=== PATIENT | female | born 1945 | race Caucasian/White ===

== ENCOUNTER 2020-12-29 09:16 | Inpatient (IN) | payer MEDICARE ==
[2020-12-29] MEDS ORDERED: Ondansetron PF 4 MG/2 ML Vial ONE (09:38)
[2020-12-29] MEDS ORDERED: Dexamethasone 10 MG/ML VIAL ONE (10:51)
[2020-12-29] MEDS ORDERED: Acetaminophen 500 MG TAB ONE (10:51)
[2020-12-29 11:04] LABS: Hemoglobin 16.4 g/dL (12.0-16.0); Mean Corpuscular HGB CONC 32.7 g/dL (32.0-36.0); Mean Corpuscular Hemoglobin 30.2 pg (27.0-31.0); Mean Corpuscular Volume 92.3 fL (78.0-98.0); Mean Platelet Volume 9.6 fL (7.4-10.4); Platelet Count 80 thou/uL (130-400); Red Blood Cell (RBC) Count 5.43 mill/uL (4.20-5.40); White Blood Cell (WBC) Count 3.6 thou/uL (4.8-10.8)
[2020-12-29 12:00] LABS: Bilirubin Moderate (Negative); Blood, Urine Negative (Negative); Clarity Clear (Clear); Glucose, Urine (Dipstick) Negative (Negative); Ketone, Urine 80 mg/dL (Negative); Leukocyte Large (Negative); Nitrite Negative (Negative); Protein, Urine (Dipstick) Trace mg/dL (Neg-Trace); Specific Gravity, Urine 1.015 (1.005-1.030); pH, Urine 6.5 (5.0-9.0)
[2020-12-29 12:02] LABS: ALT (SGPT) 137 U/L (8-55); AST (SGOT) 168 U/L (5-34); Albumin 3.5 g/dL (3.4-4.8); Alkaline Phosphatase 135 U/L (40-110); Anion Gap 23 mmol/L (10-20); BUN (Urea Nitrogen) 10 mg/dL (9.8-20.1); Bilirubin, Total 0.8 mg/dL (0.2-1.2); Calc. Creatinine Clearance 0 mL/min (70-130); Calcium 7.6 mg/dL (7.8-10.44); Carbon Dioxide 17 mmol/L (23-31); Chloride 100 mmol/L (98-107); Globulin 2.8 g/dL (2.4-3.5); Glucose 112 mg/dL (83-110); Potassium 3.4 mmol/L (3.5-5.1); Protein, Total 6.3 g/dL (5.8-8.1); Sodium 137 mmol/L (136-145)
[2020-12-29 12:39] LABS: RBC/HPF 0-3 HPF (0-3)
[2020-12-29 12:40] LABS: Bacteria/HPF 1+ HPF (None Seen); Transitional Epithelial 0-3 HPF (None Seen); WBC/HPF 21-50 HPF (0-3)
[2020-12-29 12:48] LABS: #Lymphocytes 0.5 thou/uL (1.20-3.40); #Monocytes 0.4 thou/uL (0.11-0.59); #Neutrophils 2.7 thou/uL (1.40-6.50); %Basophils 0.4 % (0.0-1.0); %Eosinophils 0.1 % (0.0-10.0); %Lymphocytes 13.7 % (21.0-51.0); %Monocytes 9.8 % (0.0-10.0); Platelet Morphology Comment Appears Decreased
[2020-12-29 15:09] LABS: SARS-CoV-2 NAA Rapid Test DETECTED (NotDetected)
[2020-12-29] MEDS: Dextrose 5 %-0.45 % NaCl 1,000 ML IV SCH (15:30)
[2020-12-29 16:14] VITALS: BMI 33.2
[2020-12-29] MEDS ORDERED: Senokot S 8.6-50 MG TAB PO PRN (20:29)
[2020-12-29] MEDS ORDERED: Loperamide HCl 2 MG CAP PO PRN ×2 (20:29)
[2020-12-29] MEDS: Ondansetron ODT 4 MG TAB PO PRN (22:05)
[2020-12-30] MEDS: Dextrose 5 %-0.45 % NaCl 1,000 ML IV SCH ×2 (01:11→01:19)
[2020-12-30 04:40] LABS: #Monocytes 0.5 thou/uL (0.11-0.59); #Neutrophils 3.3 thou/uL (1.40-6.50); %Basophils 0.5 % (0.0-1.0); %Eosinophils 0.1 % (0.0-10.0); %Lymphocytes 20.7 % (21.0-51.0); %Monocytes 10.5 % (0.0-10.0); %Neutrophils 68.2 % (42.0-75.0); Mean Corpuscular HGB CONC 33.4 g/dL (32.0-36.0); Mean Corpuscular Hemoglobin 30.1 pg (27.0-31.0); Mean Corpuscular Volume 90.1 fL (78.0-98.0); Mean Platelet Volume 10.3 fL (7.4-10.4); Platelet Count 130 thou/uL (130-400); RBC Distribution Width 11.6 % (11.5-14.5); Red Blood Cell (RBC) Count 4.96 mill/uL (4.20-5.40); White Blood Cell (WBC) Count 4.8 thou/uL (4.8-10.8)
[2020-12-30 05:17] LABS: ALT (SGPT) 168 U/L (8-55); AST (SGOT) 214 U/L (5-34); Albumin 3.4 g/dL (3.4-4.8); Alkaline Phosphatase 151 U/L (40-110); Anion Gap 15 mmol/L (10-20); BUN (Urea Nitrogen) 6 mg/dL (9.8-20.1); Bilirubin, Total 0.6 mg/dL (0.2-1.2); Calc. Creatinine Clearance 82 mL/min (70-130); Calcium 8.3 mg/dL (7.8-10.44); Carbon Dioxide 26 mmol/L (23-31); Chloride 104 mmol/L (98-107); Globulin 2.8 g/dL (2.4-3.5); Glucose 135 mg/dL (83-110); Potassium 3.1 mmol/L (3.5-5.1); Protein, Total 6.2 g/dL (5.8-8.1); Sodium 142 mmol/L (136-145)
[2020-12-30] MEDS: Enoxaparin Sodium 30 MG/0.3 ML SYRINGE SC SCH (08:55)
[2020-12-30] MEDS ORDERED: FLU VACC QS2020-21(65YR UP)/PF 240 MCG/0.7 ML SYRINGE IM ONE (09:00)
[2020-12-30] MEDS: Ondansetron ODT 4 MG TAB PO PRN (09:56)
[2020-12-30] MEDS: Sodium Chloride 0.9% 1,000 ML IV SCH ×2 (13:07→20:46)
[2020-12-30] MEDS: Potassium Chloride 10 MEQ TAB PO SCH (17:09)
[2020-12-30] MEDS: Zolpidem Tartrate 5 MG TAB PO PRN (20:45)
[2020-12-31] MEDS: Sodium Chloride 0.9% 1,000 ML IV SCH ×3 (00:32→15:35)
[2020-12-31] MEDS: Acetaminophen 325 MG TAB PO PRN ×2 (04:56→22:15)
[2020-12-31] MEDS: Potassium Chloride 10 MEQ TAB PO SCH ×2 (08:57→16:08)
[2020-12-31] MEDS: Enoxaparin Sodium 30 MG/0.3 ML SYRINGE SC SCH (08:57)
[2020-12-31] MEDS: Ondansetron ODT 4 MG TAB PO PRN (16:08)
[2020-12-31] MEDS: Zolpidem Tartrate 5 MG TAB PO PRN (22:15)
[2020-12-31] MEDS: Ondansetron PF 4 MG/2 ML Vial IVP PRN (22:15)
[2021-01-01] MEDS: Sodium Chloride 0.9% 1,000 ML IV SCH (05:02)
[2021-01-01 05:04] LABS: #Lymphocytes 0.7 thou/uL (1.20-3.40); #Monocytes 0.4 thou/uL (0.11-0.59); #Neutrophils 1.9 thou/uL (1.40-6.50); %Basophils 0.8 % (0.0-1.0); %Eosinophils 0.3 % (0.0-10.0); %Lymphocytes 22.1 % (21.0-51.0); %Neutrophils 63.7 % (42.0-75.0); Hemoglobin 13.5 g/dL (12.0-16.0); Mean Corpuscular HGB CONC 32.5 g/dL (32.0-36.0); Mean Corpuscular Hemoglobin 29.7 pg (27.0-31.0); Mean Corpuscular Volume 91.2 fL (78.0-98.0); Mean Platelet Volume 8.8 fL (7.4-10.4); Platelet Count 134 thou/uL (130-400); RBC Distribution Width 11.8 % (11.5-14.5); Red Blood Cell (RBC) Count 4.56 mill/uL (4.20-5.40)
[2021-01-01 05:18] LABS: ALT (SGPT) 154 U/L (8-55); AST (SGOT) 133 U/L (5-34); Albumin 2.9 g/dL (3.4-4.8); Alkaline Phosphatase 137 U/L (40-110); Anion Gap 15 mmol/L (10-20); BUN (Urea Nitrogen) 5 mg/dL (9.8-20.1); Bilirubin, Total 0.6 mg/dL (0.2-1.2); Calc. Creatinine Clearance 85 mL/min (70-130); Calcium 7.1 mg/dL (7.8-10.44); Carbon Dioxide 27 mmol/L (23-31); Chloride 102 mmol/L (98-107); Globulin 2.4 g/dL (2.4-3.5); Glucose 89 mg/dL (83-110); Protein, Total 5.3 g/dL (5.8-8.1); Sodium 141 mmol/L (136-145)
[2021-01-01 05:26] LABS: Potassium 2.7 mmol/L (3.5-5.1)
[2021-01-01] MEDS ORDERED: Potassium Chloride 10 MEQ in Premix Bag 1 BAG IVPB SCH (07:15)
[2021-01-01] MEDS ORDERED: Senokot S 8.6-50 MG TAB PO PRN (08:39)
[2021-01-01] MEDS: NS 0.9% w/ 20 MEQ KCL 1,000 ML/1,000 ML BAG IV SCH (08:56)
[2021-01-01] MEDS: Enoxaparin Sodium 30 MG/0.3 ML SYRINGE SC SCH (08:57)
[2021-01-01] MEDS: Potassium Chloride 20 MEQ TAB PO SCH ×2 (08:57→21:41)
[2021-01-01] MEDS ORDERED: Iopamidol 370 76% 100 ML VIAL ONE (11:35)
[2021-01-01] MEDS: Ondansetron ODT 4 MG TAB PO PRN (14:16)
[2021-01-01] MEDS: Acetaminophen 325 MG TAB PO PRN (21:41)
[2021-01-01] MEDS: Zolpidem Tartrate 5 MG TAB PO PRN (21:42)
[2021-01-01] MEDS: Ondansetron PF 4 MG/2 ML Vial IVP PRN (21:42)
[2021-01-02] MEDS: NS 0.9% w/ 20 MEQ KCL 1,000 ML/1,000 ML BAG IV SCH ×2 (05:41→17:46)
[2021-01-02] MEDS: Potassium Chloride 20 MEQ TAB PO SCH ×2 (08:47→20:47)
[2021-01-02] MEDS: Enoxaparin Sodium 30 MG/0.3 ML SYRINGE SC SCH (08:47)
[2021-01-02] MEDS: Zolpidem Tartrate 5 MG TAB PO PRN (23:22)
[2021-01-03 06:56] VITALS: TEMP 98.2
[2021-01-03] MEDS: Enoxaparin Sodium 30 MG/0.3 ML SYRINGE SC SCH (09:37)
[2021-01-03] MEDS: Potassium Chloride 20 MEQ TAB PO SCH (09:37)
[2021-01-03] MEDS: NS 0.9% w/ 20 MEQ KCL 1,000 ML/1,000 ML BAG IV SCH (09:42)
[2021-01-03 11:22] LABS: #Lymphocytes 0.9 thou/uL (1.20-3.40); #Monocytes 0.5 thou/uL (0.11-0.59); #Neutrophils 3.6 thou/uL (1.40-6.50); %Basophils 0.5 % (0.0-1.0); %Eosinophils 0.7 % (0.0-10.0); %Lymphocytes 17.7 % (21.0-51.0); %Monocytes 10.4 % (0.0-10.0); %Neutrophils 70.7 % (42.0-75.0); Hemoglobin 14.4 g/dL (12.0-16.0); Mean Corpuscular HGB CONC 33.2 g/dL (32.0-36.0); Mean Corpuscular Hemoglobin 30.1 pg (27.0-31.0); Mean Corpuscular Volume 90.6 fL (78.0-98.0); Mean Platelet Volume 8.2 fL (7.4-10.4); Platelet Count 193 thou/uL (130-400); RBC Distribution Width 12.1 % (11.5-14.5)
[2021-01-03 11:49] LABS: Anion Gap 13 mmol/L (10-20); BUN (Urea Nitrogen) Less than 4 mg/dL (9.8-20.1); Calc. Creatinine Clearance 82 mL/min (70-130); Carbon Dioxide 24 mmol/L (23-31); Chloride 106 mmol/L (98-107); Potassium 3.9 mmol/L (3.5-5.1); Sodium 139 mmol/L (136-145)
[2021-01-03 11:50] LABS: ALT (SGPT) 85 U/L (8-55); AST (SGOT) 60 U/L (5-34); Albumin 3.1 g/dL (3.4-4.8); Alkaline Phosphatase 162 U/L (40-110); Bilirubin, Total 0.6 mg/dL (0.2-1.2); CRP (Inflammatory) 4.38 mg/dL (= or < 0.5); Calcium 7.5 mg/dL (7.8-10.44); Globulin 2.3 g/dL (2.4-3.5); Glucose 142 mg/dL (83-110); Protein, Total 5.4 g/dL (5.8-8.1)
[2021-01-03 11:53] VITALS: BP 110/72
== END 2021-01-03 16:39 | disposition home or self-care (01) | DRG 177 ==
LOC: BURERS 09:16 → BURMED 12:42
PROVIDERS: ADMIT Family Medicine; ATTEND Family Medicine
PROC: 8E0ZXY6 Isolation (ICD-10-PCS; principal; 2020-12-29)
DX: U07.1 COVID-19 (principal); J12.82 Pneumonia due to coronavirus disease 2019; N39.0 Urinary tract infection, site not specified; E86.0 Dehydration; K21.9 Gastro-esophageal reflux disease without esophagitis; Z90.49 Acquired absence of other specified parts of digestive tract; Z90.710 Acquired absence of both cervix and uterus; Z88.0 Allergy status to penicillin; Z98.890 Other specified postprocedural states; Z91.81 History of falling; E87.6 Hypokalemia
CPT/HCPCS: 0240U; 36415; 71045; 74022; 74177; 80053; 81003; 81015; 82728; 83605; 85025; 85379; 86140; 87040; 87086; 93005; 96365; 96375; J1100; J1650; J1956; J2405; J3480; J7050; Q0162; Q9967

== ENCOUNTER 2021-01-01 15:51 | Emergency (ER) | payer MEDICARE ==
[2021-01-01 16:45] LABS: ALT (SGPT) 149 U/L (8-55); AST (SGOT) 121 U/L (5-34); Albumin 3.3 g/dL (3.4-4.8); Alkaline Phosphatase 164 U/L (40-110); Anion Gap 19 mmol/L (10-20); BUN (Urea Nitrogen) 6 mg/dL (9.8-20.1); Bilirubin, Total 0.8 mg/dL (0.2-1.2); Calc. Creatinine Clearance 0 mL/min (70-130); Calcium 7.5 mg/dL (7.8-10.44); Carbon Dioxide 23 mmol/L (23-31); Chloride 101 mmol/L (98-107); Globulin 2.9 g/dL (2.4-3.5); Glucose 137 mg/dL (83-110); Potassium 3.4 mmol/L (3.5-5.1); Protein, Total 6.2 g/dL (5.8-8.1); Sodium 140 mmol/L (136-145)
[2021-01-01 16:52] LABS: Hemoglobin 15.2 g/dL (12.0-16.0); Mean Corpuscular HGB CONC 33.2 g/dL (32.0-36.0); Mean Corpuscular Volume 90.3 fL (78.0-98.0); Mean Platelet Volume 8.9 fL (7.4-10.4); Platelet Count 192 thou/uL (130-400); RBC Distribution Width 11.6 % (11.5-14.5); Red Blood Cell (RBC) Count 5.08 mill/uL (4.20-5.40)
[2021-01-01 18:33] LABS: #Lymphocytes 1.1 thou/uL (1.20-3.40); #Monocytes 0.5 thou/uL (0.11-0.59); #Neutrophils 3.4 thou/uL (1.40-6.50); %Basophils 0.3 % (0.0-1.0); %Eosinophils 0.1 % (0.0-10.0); %Lymphocytes 22.2 % (21.0-51.0); %Neutrophils 67.3 % (42.0-75.0); Platelet Morphology Comment Appears Adequate; RBC Morphology Normal
[2021-01-01] MEDS ORDERED: Mag-Al Plus 1200 MG/1200 MG/120 MG/30 ML UDCUP ONE (18:40)
[2021-01-01] MEDS ORDERED: Lidocaine Viscous Sol 2% 15 ml UD Cup ONE (18:40)
== END 2021-01-01 20:15 | disposition critical access hospital (66) ==
LOC: BURERS 15:51
DX: E86.0 Dehydration (principal); R19.7 Diarrhea, unspecified; Z79.899 Other long term (current) drug therapy
CPT/HCPCS: 83605; 83880; 93005

== ENCOUNTER 2021-01-03 16:40 | Inpatient (IN) | payer MEDICARE ==
[2021-01-03] MEDS ORDERED: Ondansetron PF 4 MG/2 ML Vial IVP PRN (17:59)
[2021-01-03] MEDS ORDERED: Loperamide HCl 2 MG CAP PO PRN (17:59)
[2021-01-03] MEDS ORDERED: Ondansetron ODT 4 MG TAB PO PRN (18:00)
[2021-01-03] MEDS: Acetaminophen 325 MG TAB PO PRN (20:30)
[2021-01-03] MEDS: Potassium Chloride 20 MEQ TAB PO SCH (20:33)
[2021-01-03 21:45] LABS: Calc. Creatinine Clearance 97 mL/min (70-130)
[2021-01-03] MEDS: NS 0.9% w/ 20 MEQ KCL 1,000 ML IV SCH (21:48)
[2021-01-03] MEDS: Zolpidem Tartrate 5 MG TAB PO PRN (21:48)
[2021-01-04] MEDS: Potassium Chloride 20 MEQ TAB PO SCH ×2 (08:27→20:41)
[2021-01-04] MEDS: Enoxaparin Sodium 30 MG/0.3 ML SYRINGE SC SCH (08:27)
[2021-01-04] MEDS ORDERED: FLU VACC QS2020-21(65YR UP)/PF 240 MCG/0.7 ML SYRINGE IM ONE (09:00)
[2021-01-04] MEDS: Acetaminophen 325 MG TAB PO PRN ×2 (11:07→20:41)
[2021-01-04] MEDS: NS 0.9% w/ 20 MEQ KCL 1,000 ML IV SCH (14:59)
[2021-01-04] MEDS: Zolpidem Tartrate 5 MG TAB PO PRN (20:41)
[2021-01-05] MEDS: NS 0.9% w/ 20 MEQ KCL 1,000 ML IV SCH (01:17)
[2021-01-05] MEDS: Potassium Chloride 20 MEQ TAB PO SCH ×2 (08:08→20:16)
[2021-01-05] MEDS: Enoxaparin Sodium 30 MG/0.3 ML SYRINGE SC SCH (08:08)
[2021-01-05] MEDS: Acetaminophen 325 MG TAB PO PRN (20:16)
[2021-01-05] MEDS: Zolpidem Tartrate 5 MG TAB PO PRN (20:16)
[2021-01-06 05:33] LABS: Hemoglobin 13.7 g/dL (12.0-16.0); Platelet Count 244 thou/uL (130-400)
[2021-01-06] MEDS: Potassium Chloride 20 MEQ TAB PO SCH ×2 (08:34→20:15)
[2021-01-06] MEDS: Enoxaparin Sodium 30 MG/0.3 ML SYRINGE SC SCH (08:34)
[2021-01-06] MEDS: Acetaminophen 325 MG TAB PO PRN (20:14)
[2021-01-06] MEDS: Zolpidem Tartrate 5 MG TAB PO PRN (20:15)
[2021-01-07] MEDS: Potassium Chloride 20 MEQ TAB PO SCH ×2 (08:33→20:15)
[2021-01-07] MEDS: Enoxaparin Sodium 30 MG/0.3 ML SYRINGE SC SCH (08:33)
[2021-01-07] MEDS: Acetaminophen 325 MG TAB PO PRN ×3 (10:03→20:15)
[2021-01-07] MEDS: Zolpidem Tartrate 5 MG TAB PO PRN (20:15)
[2021-01-08] MEDS: Enoxaparin Sodium 30 MG/0.3 ML SYRINGE SC SCH (07:45)
[2021-01-08] MEDS: Potassium Chloride 20 MEQ TAB PO SCH ×2 (07:45→20:39)
[2021-01-08] MEDS: Acetaminophen 325 MG TAB PO PRN (17:32)
[2021-01-08] MEDS: Ibuprofen 800 MG TAB PO PRN (20:38)
[2021-01-08] MEDS: Senokot S 8.6-50 MG TAB PO PRN (20:39)
[2021-01-08] MEDS: Zolpidem Tartrate 5 MG TAB PO PRN (21:09)
[2021-01-09 06:21] LABS: Hemoglobin 12.7 g/dL (12.0-16.0); Platelet Count 262 thou/uL (130-400)
[2021-01-09] MEDS: Potassium Chloride 20 MEQ TAB PO SCH ×2 (08:24→20:11)
[2021-01-09] MEDS: Enoxaparin Sodium 30 MG/0.3 ML SYRINGE SC SCH (08:24)
[2021-01-09 10:06] VITALS: BMI 34.8
[2021-01-09] MEDS: Ibuprofen 800 MG TAB PO PRN (11:20)
[2021-01-09] MEDS: Acetaminophen 325 MG TAB PO PRN ×2 (15:12→20:10)
[2021-01-09] MEDS: Senokot S 8.6-50 MG TAB PO PRN ×2 (15:13→20:10)
[2021-01-09] MEDS: Zolpidem Tartrate 5 MG TAB PO PRN (20:10)
[2021-01-10] MEDS: Ibuprofen 800 MG TAB PO PRN ×3 (01:34→21:14)
[2021-01-10] MEDS: Enoxaparin Sodium 30 MG/0.3 ML SYRINGE SC SCH (08:57)
[2021-01-10] MEDS: Potassium Chloride 20 MEQ TAB PO SCH ×2 (08:57→21:13)
[2021-01-10] MEDS: Senokot S 8.6-50 MG TAB PO PRN (09:13)
[2021-01-10] MEDS: Acetaminophen 325 MG TAB PO PRN (09:13)
[2021-01-10] MEDS ORDERED: Bisacodyl 10 MG SUPP PR PRN (09:54)
[2021-01-10] MEDS: Polyethylene Glycol 3350 17 GM Packet PO PRN (10:40)
[2021-01-10] MEDS: Zolpidem Tartrate 5 MG TAB PO PRN (21:14)
[2021-01-11] MEDS: Acetaminophen 325 MG TAB PO PRN ×2 (04:12→16:29)
[2021-01-11] MEDS: Senokot S 8.6-50 MG TAB PO PRN (07:59)
[2021-01-11] MEDS: Polyethylene Glycol 3350 17 GM Packet PO PRN (07:59)
[2021-01-11] MEDS: Enoxaparin Sodium 30 MG/0.3 ML SYRINGE SC SCH (07:59)
[2021-01-11] MEDS: Potassium Chloride 20 MEQ TAB PO SCH ×2 (08:00→21:45)
[2021-01-11] MEDS: Ibuprofen 800 MG TAB PO PRN ×2 (12:54→21:44)
[2021-01-11] MEDS: Zolpidem Tartrate 5 MG TAB PO PRN (21:45)
[2021-01-12 05:34] LABS: Hemoglobin 13.1 g/dL (12.0-16.0); Platelet Count 234 thou/uL (130-400)
[2021-01-12] MEDS: Potassium Chloride 20 MEQ TAB PO SCH ×2 (07:56→21:20)
[2021-01-12] MEDS: Enoxaparin Sodium 30 MG/0.3 ML SYRINGE SC SCH (07:56)
[2021-01-12] MEDS: Acetaminophen 325 MG TAB PO PRN ×2 (09:33→21:20)
[2021-01-12] MEDS: Senokot S 8.6-50 MG TAB PO PRN (09:34)
[2021-01-12] MEDS: Ibuprofen 800 MG TAB PO PRN (18:15)
[2021-01-12] MEDS: Zolpidem Tartrate 5 MG TAB PO PRN (21:20)
[2021-01-13] MEDS: Ibuprofen 800 MG TAB PO PRN ×2 (02:37→14:20)
[2021-01-13] MEDS: Acetaminophen 325 MG TAB PO PRN ×2 (08:33→20:22)
[2021-01-13] MEDS: Polyethylene Glycol 3350 17 GM Packet PO PRN (08:33)
[2021-01-13] MEDS: Enoxaparin Sodium 30 MG/0.3 ML SYRINGE SC SCH (08:33)
[2021-01-13] MEDS: Potassium Chloride 20 MEQ TAB PO SCH ×2 (08:35→20:22)
[2021-01-13] MEDS: Senokot S 8.6-50 MG TAB PO PRN (08:35)
[2021-01-13] MEDS: Zolpidem Tartrate 5 MG TAB PO PRN (20:22)
[2021-01-14] MEDS: Potassium Chloride 20 MEQ TAB PO SCH ×2 (09:21→20:20)
[2021-01-14] MEDS: Enoxaparin Sodium 30 MG/0.3 ML SYRINGE SC SCH (09:21)
[2021-01-14] MEDS: Ibuprofen 800 MG TAB PO PRN ×2 (09:21→20:20)
[2021-01-14] MEDS: Acetaminophen 325 MG TAB PO PRN (12:16)
[2021-01-14] MEDS: Zolpidem Tartrate 5 MG TAB PO PRN (20:20)
[2021-01-15] MEDS: Polyethylene Glycol 3350 17 GM Packet PO PRN (05:02)
[2021-01-15] MEDS: Senokot S 8.6-50 MG TAB PO PRN (05:02)
[2021-01-15 05:06] LABS: Hemoglobin 13.2 g/dL (12.0-16.0); Platelet Count 207 thou/uL (130-400)
[2021-01-15] MEDS: Potassium Chloride 20 MEQ TAB PO SCH ×2 (09:19→22:09)
[2021-01-15] MEDS: Ibuprofen 800 MG TAB PO PRN ×2 (09:19→22:09)
[2021-01-15] MEDS: Enoxaparin Sodium 30 MG/0.3 ML SYRINGE SC SCH (09:20)
[2021-01-15] MEDS: Acetaminophen 325 MG TAB PO PRN (13:55)
[2021-01-15] MEDS: Zolpidem Tartrate 5 MG TAB PO PRN (22:09)
[2021-01-16 05:43] VITALS: BP 105/56; TEMP 97
[2021-01-16 09:43] LABS: ALT (SGPT) 25 U/L (8-55); AST (SGOT) 27 U/L (5-34); Albumin 3.4 g/dL (3.4-4.8); Alkaline Phosphatase 139 U/L (40-110); Anion Gap 13 mmol/L (10-20); BUN (Urea Nitrogen) 15 mg/dL (9.8-20.1); Bilirubin, Total 0.4 mg/dL (0.2-1.2); Calc. Creatinine Clearance 76 mL/min (70-130); Calcium 8.8 mg/dL (7.8-10.44); Carbon Dioxide 21 mmol/L (23-31); Chloride 110 mmol/L (98-107); Globulin 3.2 g/dL (2.4-3.5); Glucose 110 mg/dL (83-110); Potassium 4.3 mmol/L (3.5-5.1); Protein, Total 6.6 g/dL (5.8-8.1); Sodium 140 mmol/L (136-145)
[2021-01-16] MEDS: Enoxaparin Sodium 30 MG/0.3 ML SYRINGE SC SCH (10:23)
[2021-01-16] MEDS: Potassium Chloride 20 MEQ TAB PO SCH (10:24)
[2021-01-16] MEDS: Ibuprofen 800 MG TAB PO PRN (14:59)
== END 2021-01-16 17:15 | disposition home or self-care (01) | DRG 178 ==
LOC: BURMED 16:40
PROVIDERS: ADMIT Family Medicine; ATTEND Family Medicine
DX: U07.1 COVID-19 (principal); N39.0 Urinary tract infection, site not specified; Z90.49 Acquired absence of other specified parts of digestive tract; Z90.710 Acquired absence of both cervix and uterus; Z88.0 Allergy status to penicillin; R53.81 Other malaise
CPT/HCPCS: 36415; 36416; 80053; 85014; 85018; 85049; J1650; J3480

== ENCOUNTER 2023-06-18 11:35 | Emergency (ER) | payer MEDICARE ==
[2023-06-18 12:19] LABS: Hematocrit 40.7 % (36.0-47.0); Mean Corpuscular HGB CONC 31.9 g/dL (32.0-36.0); Mean Corpuscular Hemoglobin 30.1 pg (27.0-31.0); Mean Corpuscular Volume 94.4 fl (78.0-98.0); Mean Platelet Volume 6.2 fL (7.4-10.4); Platelet Count 254 10x3/uL (130-400); RBC Distribution Width 11.9 % (11.5-14.5); Red Blood Cell (RBC) Count 4.31 mill/uL (4.20-5.40); White Blood Cell (WBC) Count 20.2 10x3/uL (4.8-10.8)
[2023-06-18 12:20] LABS: ALT (SGPT) 60 U/L (8-55); AST (SGOT) 54 U/L (5-34); Albumin 3.9 g/dL (3.4-4.8); Alkaline Phosphatase 103 U/L (40-110); Anion Gap 17 mmol/L (10-20); BUN (Urea Nitrogen) 16 mg/dL (9.8-20.1); Band 5 % (5-11); Bilirubin, Total 0.4 mg/dL (0.2-1.2); Calc. Creatinine Clearance 0 mL/min (70-130); Calcium 8.9 mg/dL (7.8-10.44); Carbon Dioxide 17 mmol/L (23-31); Chloride 110 mmol/L (98-107); Estimated GFR 58; Globulin 2.3 g/dL (2.4-3.5); Glucose 194 mg/dL (83-110); Lymphocytes 4 % (21-51); MDiff Complete? YES; Magnesium 1.8 mg/dL (1.6-2.6); Metamyelocyte 1 % (0-0); Monocytes 1 % (0-10); Neutrophil 89 % (42-75); Potassium 3.3 mmol/L (3.5-5.1); Protein, Total 6.2 g/dL (5.8-8.1); Sodium 141 mmol/L (136-145); Troponin I Less than 0.010 ng/mL (< 0.028)
[2023-06-18] MEDS ORDERED: HYDROcodone/Acetaminophen 10/325 mg Tablet ONE (12:54)
[2023-06-18] MEDS ORDERED: Promethazine 25 MG TAB ONE ×2 (12:55→15:04)
[2023-06-18 14:43] LABS: Troponin I Less than 0.010 ng/mL (< 0.028)
[2023-06-18] MEDS ORDERED: HYDROcodone/Acetaminophen 5/325 mg Tablet ONE (15:04)
== END 2023-06-18 15:14 | disposition home or self-care (01) ==
LOC: BURERS 11:35
DX: R55 Syncope and collapse (principal); R07.89 Other chest pain; E11.40 Type 2 diabetes mellitus with diabetic neuropathy, unspecified; E78.00 Pure hypercholesterolemia, unspecified; Z79.899 Other long term (current) drug therapy
CPT/HCPCS: 70450; 71045; 72125; 72131; 80053; 83735; 84484; 85025; 93005; 94760; Q0169